=== PATIENT | female | born 1970 ===

== ENCOUNTER 2018-08-24 20:29 | Emergency (ER) | payer BC ==
[2018-08-24 20:29] VITALS: BMI 34.9
[2018-08-24 20:55] VITALS: RESP 18
--- NOTE | 2018-08-24 21:02 | ED PDOC ---
Arrival/HPI - General Historian: Patient - History of Present Illness Narrative History of Present Illness (Text): 08/24/18 21:02 48 y/o female, no significant pmh, nkda, c/o rt. foot 1st digit toe pain x 3 days s/p purchasing thew new shoe. Pt. stated that she has trying to tried different shoes for bigger shoe width for her rt. foot pain, no fall or trauma, no numbness or tingling, no night sweat, no dizziness, no numbness or tingling, no other medical or psychological complaint. <Alexander Boyce - Last Filed: 08/24/18 21:14> <Frankie Child - Last Filed: 08/24/18 21:33> - General Chief Complaint: Lower Extremity Problem/Injury Time Seen by Provider: 08/24/18 21:01 Past Medical History - Provider Review Nursing Documentation Reviewed: Yes - Infectious Disease Hx of Infectious Diseases: None - Psychiatric Hx Substance Use: No - Surgical History Hx Appendectomy: Yes Hx Section: Yes - Anesthesia Hx Anesthesia: Yes Hx Anesthesia Reactions: No Hx Malignant Hyperthermia: No <Alexander Boyce - Last Filed: 08/24/18 21:14> Family/Social History - Physician Review Nursing Documentation Reviewed: Yes Family/Social History: Unknown Family HX Smoking Status: Never Smoked Hx Alcohol Use: No Hx Substance Use: No <Alexander Boyce - Last Filed: 08/24/18 21:14> Allergies/Home Meds <Alexander Boyce - Last Filed: 08/24/18 21:14> <Frankie Child - Last Filed: 08/24/18 21:33> Allergies/Adverse Reactions: Allergies No Known Allergies Allergy (Verified 04/19/18 08:30) Review of Systems - Review of Systems Constitutional: absent: Fatigue, Fevers Eyes: absent: Vision Changes ENT: absent: Hearing Changes Respiratory: absent: SOB, Cough Cardiovascular: absent: Chest Pain Gastrointestinal: absent: Abdominal Pain, Diarrhea, Nausea, Vomiting Musculoskeletal: Arthralgias. absent: Back Pain Skin: absent: Rash, Pruritis Psychiatric: absent: Anxiety, Depression, Suicidal Ideation <Alexander Boyce - Last Filed: 08/24/18 21:14> Physical Exam Vital Signs Reviewed: Yes Vital Signs Temp Pulse Resp BP Pulse Ox 08/24/18 20:29 97.6 F 76 18 132/79 99 Temperature: Afebrile Blood Pressure: Normal Pulse: Regular Respiratory Rate: Normal Appearance: Positive for: Well-Appearing, Non-Toxic, Comfortable Pain Distress: Mild Mental Status: Positive for: Alert and Oriented X 3 - Systems Exam Head: Present: Atraumatic, Normocephalic Pupils: Present: PERRL Extroacular Muscles: Present: EOMI Conjunctiva: Present: Normal Mouth: Present: Moist Mucous Membranes Neck: Present: Normal Range of Motion Respiratory/Chest: Present: Clear to Auscultation, Good Air Exchange. No: Respiratory Distress, Accessory Muscle Use Cardiovascular: Present: Regular Rate and Rhythm, Normal S1, S2. No: Murmurs Abdomen: No: Tenderness, Distention, Peritoneal Signs Back: Present: Normal Inspection Upper Extremity: Present: Normal Inspection. No: Cyanosis, Edema Lower Extremity: Present: Normal Inspection, Other (Rt. foot: no tenderness or erythematous, skin flaking and lichenification with callus noted on the 1st digit toe and sole of the foot, neurovasculart intact and full sensation intact to sharp and dull, +DPPT pulses, capillary refill< 2 seconda, neurovasuclar intact. ). No: Edema Neurological: Present: GCS=15, CN II-XII Intact, Speech Normal Skin: Present: Warm, Dry, Normal Color. No: Rashes Psychiatric: Present: Alert, Oriented x 3, Normal Insight, Normal Concentration <Alexander Boyce - Last Filed: 08/24/18 21:14> Vital Signs Temp Pulse Resp BP Pulse Ox 08/24/18 20:29 97.6 F 76 18 132/79 99 <Frankie Child - Last Filed: 08/24/18 21:33> Medical Decision Making ED Course and Treatment: 08/24/18 21:30 -Discharge home with education on follow up with your own pmd and digital media director within 2 days, epson salt soaking, rest, return to the ER for any new or worsening signs or symptoms, tylenol for pain as needed <Alexander Boyce - Last Filed: 08/24/18 21:14> - PA / CEMENT TILE [employer]KER / Resident Statement MD/DO has reviewed & agrees with the documentation as recorded. <Alexander Boyce - Last Filed: 08/24/18 21:14> - PA / CEMENT TILE MAKER / Resident Statement MD/DO has reviewed & agrees with the documentation as recorded. <Frankie Child - Last Filed: 08/24/18 21:33> Disposition/Present on Arrival - Present on Arrival Any Indicators Present on Arrival: No History of DVT/PE: No History of Uncontrolled Diabetes: No Urinary Catheter: No History of Decub. Ulcer: No History Surgical Site Infection Following: None - Disposition Have Diagnosis and Disposition been Completed?: Yes Disposition Time: 21:31 Patient Plan: Discharge <Alexander Boyce - Last Filed: 08/24/18 21:14> <Frankie Child - Last Filed: 08/24/18 21:33> - Disposition Diagnosis: Skin callus Disposition: HOME/ ROUTINE Condition: GOOD Additional Instructions: -Discharge home with education on follow up with your own pmd and digital media director within 2 days, epson salt soaking, rest, return to the ER for any new or worsening signs or symptoms, tylenol for pain as needed Referrals: Valentina Street DPM [Staff Provider] - Follow up with primary Forms: [employer] (Slovak), WORK NOTE
[2018-08-24 21:59] VITALS: BP 129/62; PULSE 72; TEMP 97.8; O2SAT 98
== END 2018-08-24 21:59 | disposition home or self-care (01) ==
LOC: ED 20:29
DX: L84 Corns and callosities (principal)